=== PATIENT | male | born 1975 | race Caucasian/White ===

== ENCOUNTER 2017-02-02 08:10 | Emergency (ER) | payer OTHER ==
[2017-02-02 08:58] LABS: HEMOGLOBIN 16.9 gm/dl (14.0-17.5); RED BLOOD COUNT 4.97 M/UL (4.20-5.50)
[2017-02-02 09:25] LABS: BUN/CREATININE RATIO 10 (0-10)
== END 2017-02-02 14:15 | disposition home or self-care (01) ==
LOC: ER1 08:10
PROVIDERS: Emergency Medicine
DX: R07.9 Chest pain, unspecified (principal); K76.0 Fatty (change of) liver, not elsewhere classified; D69.6 Thrombocytopenia, unspecified; J44.9 Chronic obstructive pulmonary disease, unspecified; I10 Essential (primary) hypertension; F17.200 Nicotine dependence, unspecified, uncomplicated
CPT/HCPCS: 36415; 71010; 76705; 80053; 82150; 82550; 82553; 83690; 83874; 84484; 85025; 85379; 93005; 99285

== ENCOUNTER 2021-06-11 18:13 | Emergency (ER) | payer OTHER ==
[~2021-06-11 18:13] MED LIST: NORCO 7.5-3251 EACH PO; OMEPRAZOLE20 M1 PO
== END 2021-06-11 20:21 | disposition home or self-care (01) ==
LOC: ER1 18:13
DX: S01.111A Laceration without foreign body of right eyelid and periocular area, initial encounter (principal); I10 Essential (primary) hypertension; F17.210 Nicotine dependence, cigarettes, uncomplicated; W20.8XXA Other cause of strike by thrown, projected or falling object, initial encounter
CPT/HCPCS: 12011; 70450; 72125; 99284

== ENCOUNTER 2021-07-27 16:08 | Inpatient (IN) | payer OTHER ==
[~2021-07-27] VITALS: Ht 167.6 cm; Wt 93.4 kg
[2021-07-27 17:14] LABS: HEMOGLOBIN 14.7 gm/dl (14.0-17.5); RED BLOOD COUNT 4.18 M/UL (4.20-5.50)
[2021-07-27 17:43] LABS: BUN/CREATININE RATIO 16 (0-10)
--- NOTE | 2021-07-28 05:11 | NUR ---
0503: DR. DOYLE AND DR. RIVERA AT BEDSIDE TO PERFORM EMERGENCY INTUBATATION. CONSENT OBTIANED FROM PATIENTS MOTHER. 0503: PATIENT PREOXYGENATED WITH 100% OF OXYGENATION 0504; 50 MG OF KETAMINE ADMINISTERED PER MD ORDER 0505; DR. DOYLE ATTEMPTED TO INTUBATED THE PATIENT 0506; 50 MG OF KETAMINE ADMINISTERD PER MD ORDER PATIENT 0507: 20MG OF OF ETOMIDATE ADMINISTERED AND 100MG OF SUCC PER MD ORDER 0507: ETT TUBE SIZE 7.5 AND 24 AT THE LIP 0510: OGT TUBE PLACED 0516: DR. RIVERA PLACED CENTRAL LINE
[2021-07-28 08:44] LABS: HEMOGLOBIN 12.6 gm/dl (14.0-17.5); RED BLOOD COUNT 3.72 M/UL (4.20-5.50)
[2021-07-28 08:49] LABS: BUN/CREATININE RATIO 17 (0-10)
[2021-07-29 01:44] LABS: RED BLOOD COUNT 3.42 M/UL (4.20-5.50)
[2021-07-29 02:17] LABS: BUN/CREATININE RATIO 15 (0-10)
[2021-07-29 12:14] LABS: HBSAG SCREEN Negative (Negative); HEP A AB, IGM Negative (Negative); HEP B CORE AB, IGM Negative (Negative); HEP C VIRUS AB 0.2 (0.0-0.9)
[2021-07-30 05:16] LABS: HEMOGLOBIN 11.9 gm/dl (14.0-17.5); RED BLOOD COUNT 3.4 M/UL (4.20-5.50); WHITE BLOOD COUNT 8.1 K/UL (4.5-11.0)
[2021-07-30 05:29] LABS: BUN/CREATININE RATIO 15 (0-10)
[2021-07-31 04:40] LABS: HEMOGLOBIN 12.8 gm/dl (14.0-17.5); RED BLOOD COUNT 3.66 M/UL (4.20-5.50); WHITE BLOOD COUNT 6.9 K/UL (4.5-11.0)
[2021-07-31 05:04] LABS: BUN/CREATININE RATIO 12 (0-10)
[2021-08-01 05:30] LABS: BUN/CREATININE RATIO 16 (0-10)
[2021-08-01 07:39] LABS: HEMOGLOBIN 12.6 gm/dl (14.0-17.5); RED BLOOD COUNT 3.66 M/UL (4.20-5.50)
[2021-08-02 05:06] LABS: HEMOGLOBIN 13.1 gm/dl (14.0-17.5); RED BLOOD COUNT 3.69 M/UL (4.20-5.50); WHITE BLOOD COUNT 6.3 K/UL (4.5-11.0)
[2021-08-02 05:37] LABS: BUN/CREATININE RATIO 16 (0-10)
[2021-08-03 06:22] LABS: BUN/CREATININE RATIO 15 (0-10)
[2021-08-04 05:12] LABS: BUN/CREATININE RATIO 21 (0-10)
[2021-08-04 19:50] LABS: ACINETOBACTER BAUMANNII Not Detected (Negative); CANDIDA ALBICANS Not Detected (Negative); CANDIDA KRUSEI Not Detected (Negative); CANDIDA TROPICALIS Not Detected (Negative); ENTEROCOCCUS Not Detected (Negative); ESCHERICHIA COLI Not Detected (Negative); HAEMOPHILUS INFLUENZAE Not Detected (Negative); KLEBSIELLA OXYTOCA Not Detected (Negative); KLEBSIELLA PNEUMONIAE Not Detected (Negative); KPC-CARBAPENEM-RESISTANCE GENE Not Detected (Negative); PROTEUS Not Detected (Negative); PSEUDOMONAS AERUGINOSA Not Detected (Negative); SERRATIA MARCESANS Not Detected (Negative); STREP AGALACTIAE (GROUP B) Not Detected (Negative); STREP PYOGENES (GROUP A) Not Detected (Negative); STREPTOCOCCUS Not Detected (Negative); vanA/B (VANCOMYCIN RESIST GENE Not Detected (Negative)
[2021-08-04 21:27] LABS: STAPHYLOCOCCUS DETECTED (Negative); mecA (METHICILLIN RESIST GENE DETECTED (Negative)
[2021-08-04 21:28] LABS: STAPHYLOCOCCUS AUREUS Not Detected (Negative)
[2021-08-05 06:34] LABS: BUN/CREATININE RATIO 41 (0-10)
[2021-08-05 08:36] LABS: HEMOGLOBIN 12.1 gm/dl (14.0-17.5); RED BLOOD COUNT 3.44 M/UL (4.20-5.50); WHITE BLOOD COUNT 10.2 K/UL (4.5-11.0)
[2021-08-06 04:56] LABS: HEMOGLOBIN 12.1 gm/dl (14.0-17.5); RED BLOOD COUNT 3.46 M/UL (4.20-5.50)
[2021-08-06 04:58] LABS: WHITE BLOOD COUNT 14.4 K/UL (4.5-11.0)
[2021-08-06 05:24] LABS: BUN/CREATININE RATIO 24 (0-10)
[2021-08-07 04:10] LABS: RED BLOOD COUNT 3.47 M/UL (4.20-5.50); WHITE BLOOD COUNT 13.3 K/UL (4.5-11.0)
[2021-08-07 04:52] LABS: BUN/CREATININE RATIO 19 (0-10)
[2021-08-08 05:34] LABS: HEMOGLOBIN 12.8 gm/dl (14.0-17.5); RED BLOOD COUNT 3.63 M/UL (4.20-5.50); WHITE BLOOD COUNT 14.9 K/UL (4.5-11.0)
[2021-08-08 05:59] LABS: BUN/CREATININE RATIO 18 (0-10)
--- NOTE | 2021-08-08 17:27 | NUR ---
1607- NOTIFIED MD OF PATIENT NONCOMPLAINT WITH TELE AND PULSE OX AT THIS TIME AND CONCERN THAT PATIENT HAS PULLED ON DOBBHOFF. NEW ORDER TO OBTAIN XRAY. WILL CONTINUE TO MONITOR.
[2021-08-09 07:17] LABS: HEMOGLOBIN 12.9 gm/dl (14.0-17.5); RED BLOOD COUNT 3.69 M/UL (4.20-5.50)
[2021-08-09 07:45] LABS: BUN/CREATININE RATIO 14 (0-10)
[2021-08-10 04:57] LABS: HEMOGLOBIN 12.1 gm/dl (14.0-17.5); RED BLOOD COUNT 3.45 M/UL (4.20-5.50); WHITE BLOOD COUNT 13.2 K/UL (4.5-11.0)
[2021-08-10 05:19] LABS: BUN/CREATININE RATIO 16 (0-10)
[2021-08-10] MEDS ORDERED: THERAGRAN M TAB1 EA PO (15:33)
[2021-08-10] MEDS ORDERED: FOLIC ACID 1 MG1 MG PO (15:33)
[2021-08-10] MEDS ORDERED: AMLODIPINE BESYL5 MG PO (15:33)
[2021-08-10] MEDS ORDERED: QUETIAPINE FUMA25 MG PO (15:33)
[2021-08-10] MEDS ORDERED: K-PHOS NEUTRAL250 MG PO (15:33)
[2021-08-10] MEDS ORDERED: KEPPRA750 MG PO (15:33)
[2021-08-10] MEDS ORDERED: LOPRESSOR 50 MG50 MG PO (15:33)
[2021-08-10] MEDS ORDERED: PROTONIX40 MG PO (15:33)
[2021-08-10] MEDS ORDERED: VITAMIN B-1100 M1 PO (15:33)
[2021-08-10] MEDS ORDERED: AUGMENTIN 875-1 EACH PO (15:34)
== END 2021-08-10 17:40 | disposition home or self-care (01) | DRG 896 ==
LOC: ER1 16:08 → CDU 22:02 → CCU 22:02 → CDU 23:21 → CCU 07-28 03:43 → MED SURG 4 08-06 14:22
PROVIDERS: Family Medicine; Internal Medicine; ADMIT Internal Medicine
PROC: 0BH17EZ Insertion of Endotracheal Airway into Trachea, Via Natural or Artificial Opening (ICD-10-PCS; principal; 2021-07-28)
PROC: 0DH67UZ Insertion of Feeding Device into Stomach, Via Natural or Artificial Opening (ICD-10-PCS; 2021-07-28)
PROC: 3E0G76Z Introduction of Nutritional Substance into Upper GI, Via Natural or Artificial Opening (ICD-10-PCS; 2021-07-28)
PROC: 5A1955Z Respiratory Ventilation, Greater than 96 Consecutive Hours (ICD-10-PCS; 2021-07-28)
PROC: 02HV33Z Insertion of Infusion Device into Superior Vena Cava, Percutaneous Approach (ICD-10-PCS; 2021-07-28)
PROC: B548ZZA Ultrasonography of Superior Vena Cava, Guidance (ICD-10-PCS; 2021-07-28)
PROC: B24BZZZ Ultrasonography of Heart with Aorta (ICD-10-PCS; 2021-08-04)
PROC: 5A0945A Assistance with Respiratory Ventilation, 24-96 Consecutive Hours, High Flow/Velocity Cannula (ICD-10-PCS; 2021-08-04)
DX: F10.239 Alcohol dependence with withdrawal, unspecified (principal); A41.02 Sepsis due to Methicillin resistant Staphylococcus aureus; Z20.822 Contact with and (suspected) exposure to COVID-19; J69.0 Pneumonitis due to inhalation of food and vomit; J96.01 Acute respiratory failure with hypoxia; R57.8 Other shock; J15.212 Pneumonia due to Methicillin resistant Staphylococcus aureus; M62.82 Rhabdomyolysis; S01.512A Laceration without foreign body of oral cavity, initial encounter; E87.6 Hypokalemia; D75.9 Disease of blood and blood-forming organs, unspecified; G40.909 Epilepsy, unspecified, not intractable, without status epilepticus; R47.02 Dysphasia; E83.39 Other disorders of phosphorus metabolism; Z96.698 Presence of other orthopedic joint implants; D69.6 Thrombocytopenia, unspecified; E66.9 Obesity, unspecified; F17.210 Nicotine dependence, cigarettes, uncomplicated; S01.552A Open bite of oral cavity, initial encounter; X58.XXXA Exposure to other specified factors, initial encounter; K70.10 Alcoholic hepatitis without ascites; I10 Essential (primary) hypertension; R73.03 Prediabetes; Z82.49 Family history of ischemic heart disease and other diseases of the circulatory system; Z83.3 Family history of diabetes mellitus; Z68.33 Body mass index [BMI] 33.0-33.9, adult
CPT/HCPCS: ECHO; 31500; 36415; 36600; 70450; 70488; 71045; 74018; 74230; 76705; 80048; 80053; 80074; 80202; 80307; 81001; 82550; 82553; 82728; 82803; 83036; 83605; 83690; 83735; 83880; 84100; 84132; 84484; 85025; 86140; 87040; 87077; 87086; 87150; 87186; 92526; 92610; 92611-GN; 93005; 93306; 94002; 94003; 94640; 94760; 96374; 96375; 96376; 97110-GP-CQ; 97116-GP-CQ; 97162; 97166; 97530; 97535; 99285; C9113; G0378; G0480; J0295; J0360; J1170; J1205; J1335; J1450; J1630; J1644; J1885; J1940; J1953; J2060; J2185; J2250; J2270; J2405; J2704; J2930; J3010; J3370; J3480; J7030; J7040; J7050; J7070; Q9967; U0002

== ENCOUNTER → 2021-09-03 | Outpatient (CLI) | payer OTHER ==
[~2021-09-03] MED LIST changes: +AMLODIPINE BESYL5 MG PO; +AUGMENTIN 875-1 EACH PO; +FOLIC ACID 1 MG1 MG PO; +K-PHOS NEUTRAL250 MG PO; +KEPPRA750 MG PO; +LOPRESSOR 50 MG50 MG PO; +PROTONIX40 MG PO; +QUETIAPINE FUMA25 MG PO; +THERAGRAN M TAB1 EA PO; +VITAMIN B-1100 M1 PO
== END ==
LOC: EMI 16:23
DX: R56.9 Unspecified convulsions (principal)
CPT/HCPCS: 70551

== ENCOUNTER 2021-10-26 01:12 | Emergency (ER) | payer OTHER ==
[2021-10-26 02:34] LABS: HEMOGLOBIN 14.2 gm/dl (14.0-17.5); RED BLOOD COUNT 4.5 M/UL (4.20-5.50); WHITE BLOOD COUNT 6.2 K/UL (4.5-11.0)
== END 2021-10-26 03:00 | disposition left against medical advice (07) ==
LOC: ER1 01:12
PROVIDERS: Family Medicine
DX: F41.9 Anxiety disorder, unspecified (principal); F17.200 Nicotine dependence, unspecified, uncomplicated; R06.00 Dyspnea, unspecified; Z20.822 Contact with and (suspected) exposure to COVID-19
CPT/HCPCS: 71045; 82550; 82553; 83874; 83880; 84484; 85025; 93005; 99283; G0480; U0002

== ENCOUNTER → 2022-04-01 | Outpatient (CLI) | payer OTHER | LOC: US 09:08 | DX: R79.89 Other specified abnormal findings of blood chemistry (principal); K76.0 Fatty (change of) liver, not elsewhere classified | CPT/HCPCS: 76705 ==

== ENCOUNTER 2022-05-31 12:19 | Emergency (ER) | payer OTHER ==
[2022-05-31 14:46] LABS: HEMOGLOBIN 15.3 gm/dl (14.0-17.5); RED BLOOD COUNT 4.47 M/UL (4.20-5.50); WHITE BLOOD COUNT 9.3 K/UL (4.5-11.0)
[2022-05-31 15:16] LABS: BUN/CREATININE RATIO 13 (0-10)
[2022-05-31] MEDS ORDERED: BACITRACIN28.4 GM TP (16:13)
[2022-05-31] MEDS ORDERED: CEPHALEXIN500 MG PO (16:13)
== END 2022-05-31 16:24 | disposition home or self-care (01) ==
LOC: ER1 12:19
PROVIDERS: Family Medicine
DX: S01.01XA Laceration without foreign body of scalp, initial encounter (principal); F17.200 Nicotine dependence, unspecified, uncomplicated; F10.10 Alcohol abuse, uncomplicated; Z23 Encounter for immunization; Y90.8 Blood alcohol level of 240 mg/100 ml or more; W01.10XA Fall on same level from slipping, tripping and stumbling with subsequent striking against unspecified object, initial encounter
CPT/HCPCS: 70450; 72125; 80053; 82140; 82550; 82553; 84484; 85025; 85610; 90471; 90715; 93005; 99284; G0480